=== PATIENT | female | born 1950 | race Caucasian/White ===

== ENCOUNTER 2017-06-21 19:03 | Emergency (ER) | payer OTHER ==
[~2017-06-21] VITALS: Ht 167.6 cm; Wt 84.5 kg
[~2017-06-21 19:03] MED LIST: BROM0.07 OPL; BUPRTAB51 PO; GLC500 PO; GLIM4TAB2 PO; HYDR12.55 PO; PRED1SUS3 OPL; SERT50TA PO
[2017-06-21 19:05] VITALS: TEMP 37.2; Ht 167.6 cm; Wt 84.5 kg
[2017-06-21] MEDS ORDERED: ONDANSETRON INJ 2 MG/ML 2 ML VIAL IV STA (19:15)
[2017-06-21] MEDS ORDERED: NITROGLYCERIN 0.4 MG SL PER TAB CHARGE SL STA ×2 (19:15→20:41)
[2017-06-21] MEDS ORDERED: ASPIRIN 81 MG CHEW PO STA (19:22)
--- NOTE | 2017-06-21 19:22 | EMERGENCY ROOM VISIT NOTE ---
History Report prepared by Pee: Everton Fields Under the Supervision of: Dr. Pato Storm M.D. First contact with patient: 19:13 Chief Complaint: HYPERTENSION Stated Complaint: HIGH BP,L ARM PAIN,NAUSEA History of Present Illness The patient is a 67 year old female who presents to the Emergency Room with complaints of left arm pain that began 1.5 hours ago and rates the pain as 8/ 10. She reports she has had a previous episode from a nerve impingement and reports she currently has additional symptoms. She reports nausea, sweating, and SOB. She denies fevers, coughs, congestion, and palpitations.The patient has a history of HTN, DM, and GERD. She denies a history of blood clots. Source of History: patient Onset: 1.5 hours ago Position: arm (left) Quality: other (pain rated as 8/10) Timing: constant Modifying Factors (Relieving): other (Aspirin) Associated Symptoms: + SOB, + nausea, No cough (denies congestion) Review of Systems See HPI for pertinent positives and negatives. A total of ten systems were reviewed and were otherwise negative. Past Medical & Surgical Medical Problems: (1) Hypertensive urgency (2) Left arm pain Social History Smoking Status: Never Smoker Current/Historical Medications Scheduled Bupropion (Wellbutrin-Xl), 300 MG PO QAM Glimepiride (Glimepiride), 0.5 TAB PO QAM Glimepiride (Glimepiride), 1 TAB PO DAILY Hydrochlorothiazide (Hydrochlorothiazide), 1 TAB PO QAM Losartan Potassium (Losartan Potassium), 50 MG PO DAILY Metformin HCl (Metformin HCl), 1 TAB PO QPM Sertraline (Zoloft), 50 MG PO QAM Sitagliptin (Januvia), 50 MG PO DAILY Allergies Coded Allergies: No Known Allergies (Unverified , 06/21/17) Physical Exam Vital Signs Date Time Temp Pulse Resp B/P (MAP) Pulse Ox O2 Delivery O2 Flow Rate FiO2 06/21/17 21:37 76 19 184/86 96 Room Air 06/21/17 21:02 77 18 175/108 95 06/21/17 20:12 72 18 166/96 95 Room Air 06/21/17 19:47 198/104 06/21/17 19:46 94 Room Air 06/21/17 19:24 77 12/6/17 19:05 37.2 93 16 187/103 97 Room Air Physical Exam GENERAL: Awake, alert, well-appearing, in no distress HENT: Normocephalic, atraumatic. Oropharynx unremarkable. EYES: Normal conjunctiva. Sclera non-icteric. NECK: Supple. No nuchal rigidity. FROM. No JVD. RESPIRATORY: Clear to auscultation. CARDIAC: Regular rate, normal rhythm. Extremities warm and well perfused. Pulses equal. ABDOMEN: Soft, non-distended. No tenderness to palpation. No rebound or guarding. No masses. Mild epigastric discomfort. No peritoneal signs. RECTAL: Deferred. MUSCULOSKELETAL: Chest examination reveals no tenderness. The back is symmetrical on inspection without obvious abnormality. There is no CVA tenderness to palpation. No joint edema. LOWER EXTREMITIES: Calves are equal size bilaterally and non-tender. No edema. No discoloration. NEURO: Normal sensorium. No sensory or motor deficits noted. SKIN: No rash or jaundice noted. Medical Decision & Procedures ER Provider Diagnostic Interpretation: Radiology results as stated below per my review and radiologist interpretation: Laboratory Results 06/21/17 19:40 Red Blood Count 4.48, Mean Corpuscular Volume 87.5, Mean Corpuscular Hemoglobin 29.2, Mean Corpuscular Hemoglobin Concent 33.4, Mean Platelet Volume 11.8, Neutrophils (%) (Auto) 51.6, Lymphocytes (%) (Auto) 33.9, Monocytes (%) (Auto) 8.7, Eosinophils (%) (Auto) 4.7, Basophils (%) (Auto) 0.7, Neutrophils # (Auto) 2.84, Lymphocytes # (Auto) 1.87, Monocytes # (Auto) 0.48, Eosinophils # (Auto) 0.26, Basophils # (Auto) 0.04 06/21/17 19:40 Test 06/21/17 19:40 06/21/17 22:19 White Blood Count 5.51 K/uL (4.8-10.8) Red Blood Count 4.48 M/uL (4.2-5.4) Hemoglobin 13.1 g/dL (12.0-16.0) Hematocrit 39.2 % (37-47) Mean Corpuscular Volume 87.5 fL (80-100) Mean Corpuscular Hemoglobin 29.2 pg (25-34) Mean Corpuscular Hemoglobin Concent 33.4 g/dl (32-36) Platelet Count 179 K/uL (130-400) Mean Platelet Volume 11.8 fL (7.4-10.4) Neutrophils (%) (Auto) 51.6 % Lymphocytes (%) (Auto) 33.9 % Monocytes (%) (Auto) 8.7 % Eosinophils (%) (Auto) 4.7 % Basophils (%) (Auto) 0.7 % Neutrophils # (Auto) 2.84 K/uL (1.4-6.5) Lymphocytes # (Auto) 1.87 K/uL (1.2-3.4) Monocytes # (Auto) 0.48 K/uL (0.11-0.59) Eosinophils # (Auto) 0.26 K/uL (0-0.5) Basophils # (Auto) 0.04 K/uL (0-0.2) RDW Standard Deviation 43.2 fL (36.4-46.3) RDW Coefficient of Variation 13.4 % (11.5-14.5) Immature Granulocyte % (Auto) 0.4 % Immature Granulocyte # (Auto) 0.02 K/uL (0.00-0.02) Anion Gap 6.0 mmol/L (3-11) Est Creatinine Clear Calc Drug Dose 55.9 ml/min Estimated GFR () 63.5 Estimated GFR (Non- 54.8 BUN/Creatinine Ratio 11.6 (10-20) Calcium Level 9.1 mg/dl (8.5-10.1) Magnesium Level 2.2 mg/dl (1.8-2.4) Total Bilirubin 0.5 mg/dl (0.2-1) Direct Bilirubin 0.1 mg/dl (0-0.2) Aspartate Amino Transf (AST/SGOT) 15 U/L (15-37) Alanine Aminotransferase (ALT/SGPT) 30 U/L (12-78) Alkaline Phosphatase 76 U/L (45-117) Troponin I < 0.015 ng/ml (0-0.045) Total Protein 7.4 gm/dl (6.4-8.2) Albumin 3.9 gm/dl (3.4-5.0) Lipase 143 U/L (73-393) Bedside Troponin I < 0.030 ng/ml (0-0.045) Laboratory results reviewed by me Medications Administered Medications (Trade) Dose Ordered Sig/Tea Route Start Time Stop Time Status Last Admin Dose Admin Nitroglycerin (Nitrostat Tab) 0.4 mg NOW STAT SL 06/21/17 19:15 06/21/17 19:22 DC 06/21/17 19:47 0.4 MG Ondansetron HCl (Zofran Inj) 4 mg NOW STAT IV 06/21/17 19:15 06/21/17 19:22 DC 06/21/17 19:47 4 MG Aspirin (Aspirin Chew) 162 mg NOW STAT PO 06/21/17 19:22 06/21/17 19:23 DC 06/21/17 19:47 162 MG Nitroglycerin (Nitrostat Tab) 0.4 mg NOW STAT SL 06/21/17 20:41 06/21/17 20:44 DC 06/21/17 20:58 0.4 MG Famotidine (Pepcid 20mg Iv Push) 20 mg NOW STAT IV 06/21/17 20:41 06/21/17 20:44 DC 06/21/17 20:58 20 MG Glimepiride (Amaryl Tab) 4 mg NOW ONCE PO 06/21/17 20:45 06/21/17 20:46 DC 06/21/17 20:58 4 MG ECG Indication: chest pain, nausea, other (Left arm pain) Rate (beats per minute): 83 Rhythm: sinus rhythm (with occasional PVC) Findings: no acute ischemic change Medical Decision I reviewed the patient's past medical history, medications, and the nursing notes as described above. The patient's presentation and history were concerning for ACS, pneumonia, bronchitis, gastritis, reflux, and peptic ulcer. She is a 67-year-old woman with a past medical history of hypertension, diabetes presented to emergency department with substernal chest pain with radiation to her left shoulder and nausea one hour prior to arrival per history of present illness. On arrival the patient is in no acute distress, afebrile with stable vital signs. She has mild epigastric discomfort but no discrete tenderness or peritoneal signs. Given the patient's age and medical history patient will be a heart score of 4 assuming a negative troponin, and thus will be moderate risk. Admission for provocative testing is reasonable. Case was discussed with the hospitalist who will admit the patient for further management. Subsequently upon interview with case management patient was inform her admission would be under observation status and so the patient declined to be admitted secondary to financial concerns. I explained given the patient's moderate risk, further evaluation is indicated however she still did not want to stay. Thus a second troponin was done as [id number] troponin and was negative. Patient understood that she would risk a worse condition, disability, and . She was encourageed to return if she changed her mind or became worse. d/c'd AMA. Impression Primary Impression: Substernal chest pain Scribe Attestation The scribe's documentation has been prepared under my direction and personally reviewed by me in its entirety. I confirm that the note above accurately reflects all work, treatment, procedures, and medical decision making performed by me. Departure Information Dispostion Against Medical Advice Referrals Bhavik Aaron M.D. (PCP) Patient Instructions My [facility]
--- NOTE | 2017-06-21 19:38 | DIAGNOSTIC IMAGING REPORT ---
SINGLE VIEW CHEST CLINICAL HISTORY: Atypical chest pain. FINDINGS: An AP, portable, upright chest radiograph is obtained. No prior studies are available for comparison at the time of dictation. The heart is top normal for projection. There is mild atherosclerotic calcification of the thoracic aorta. Minimal bibasilar atelectasis is noted. The lungs and pleural spaces are otherwise clear. No pneumothorax is seen. The skeletal structures are osteopenic. The bony thorax is grossly intact. IMPRESSION: No acute cardiopulmonary abnormality. Electronically signed by: Juan Roy M.D. 06/21/2017 7:37 PM Dictated Date/Time: 06/21/2017 7:36 PM
[2017-06-21 19:46] VITALS: O2SAT 94
[2017-06-21 19:54] LABS: BASO % 0.7 %; BASO ABS # 0.04 K/uL (0-0.2); COMPLETE YES; EOS % 4.7 %; HEMATOCRIT 39.2 % (37-47); IG% 0.4 %; LYMPH % 33.9 %; LYMPH ABS # 1.87 K/uL (1.2-3.4); MEAN CELL VOLUME 87.5 fL (80-100); MEAN CORPUSCULAR HEMOGLOBIN 29.2 pg (25-34); MEAN CORPUSCULAR HGB CONC 33.4 g/dl (32-36); MEAN PLATELET VOLUME 11.8 fL (7.4-10.4); MONO % 8.7 %; NEUT % 51.6 %; PLATELET COUNT 179 K/uL (130-400); RED BLOOD COUNT 4.48 M/uL (4.2-5.4); WHITE BLOOD COUNT 5.51 K/uL (4.8-10.8)
[2017-06-21] MEDS ORDERED: SITA50TA3 PO (20:10)
[2017-06-21] MEDS ORDERED: GLIM4TAB2 PO (20:10)
[2017-06-21 20:12] LABS: ALT/SGPT 30 U/L (12-78); AST/SGOT 15 U/L (15-37); BLOOD UREA NITROGEN 12 mg/dl (7-18); BUN/CREATININE RATIO 11.6 (10-20); CALCIUM 9.1 mg/dl (8.5-10.1); CARBON DIOXIDE 28 mmol/L (21-32); CHLORIDE 102 mmol/L (98-107); CREATININE 1.04 mg/dl (0.60-1.20); GLUCOSE 107 mg/dl (70-99); MAGNESIUM 2.2 mg/dl (1.8-2.4); POTASSIUM 3.2 mmol/L (3.5-5.1); SODIUM 136 mmol/L (136-145)
[2017-06-21 20:17] LABS: ALKALINE PHOSPHATASE 76 U/L (45-117)
[2017-06-21] MEDS ORDERED: FAMOTIDINE 20MG/5ML IV PUSH IV STA (20:41)
[2017-06-21] MEDS ORDERED: GLIMEPIRIDE 2 MG TAB PO ONE (20:45)
[2017-06-21] MEDS ORDERED: METFORMIN HCL 500 MG TAB PO SCH (20:45)
[2017-06-21 21:37] VITALS: BP 184/86; PULSE 76; O2SAT 96
[2017-06-21] MEDS ORDERED: GLUCOSE 40% GEL 15 GM TUBE PO PRN (21:45)
[2017-06-21] MEDS ORDERED: DEXTROSE 50% 50 ML SYR IV PRN (21:45)
[2017-06-21] MEDS ORDERED: GLUCOSE 10 TABS/TUBE PO PRN (21:45)
[2017-06-21] MEDS ORDERED: LABETALOL HCL IV 5 MG/ML 20ML IV PRN (21:45)
[2017-06-21] MEDS ORDERED: NITROGLYCERIN 0.4 MG SL PER TAB CHARGE SL PRN (21:45)
[2017-06-21] MEDS ORDERED: ACETAMINOPHEN 325 MG TAB PO PRN (21:45)
[2017-06-21] MEDS ORDERED: ENOXAPARIN 40 MG/0.4 ML SYR SC SCH (21:45)
[2017-06-21] MEDS ORDERED: GLUCAGON FOR INJ 1 MG VIAL SQ PRN (21:45)
[2017-06-21] MEDS ORDERED: ONDANSETRON INJ 2 MG/ML 2 ML VIAL IV PRN (21:45)
[2017-06-21] MEDS ORDERED: POTASSIUM CHLORIDE 10 MEQ TABCR PO ONE (21:45)
[2017-06-21] MEDS ORDERED: CZR25 PO (21:54)
--- NOTE | 2017-06-21 21:55 | History and Physical ---
History & Physical Date & Time of Service: Jun 21, 2017 at 21:55 Chief Complaint: High Bp,L Arm Pain,Nausea Primary Care Physician: Bhavik Aaron M.D. History of Present Illness Source: patient Patient is a 67 Yr female with PMH of HTN, DM II, Depression, ?Asthma presents with history of Social History Smoking Status: Never Smoker Allergies Coded Allergies: No Known Allergies (Unverified , 06/21/17) Home Medications Scheduled Bupropion (Wellbutrin-Xl), 300 MG PO QAM Glimepiride (Glimepiride), 0.5 TAB PO QAM Glimepiride (Glimepiride), 1 TAB PO DAILY Hydrochlorothiazide (Hydrochlorothiazide), 1 TAB PO QAM Losartan Potassium (Losartan Potassium), 50 MG PO DAILY Metformin HCl (Metformin HCl), 1 TAB PO QPM Sertraline (Zoloft), 50 MG PO QAM Sitagliptin (Januvia), 50 MG PO DAILY Physical Exam Vital Signs Date Time Temp Pulse Resp B/P (MAP) Pulse Ox O2 Delivery O2 Flow Rate FiO2 06/21/17 21:37 76 19 184/86 96 Room Air 06/21/17 21:02 77 18 175/108 95 06/21/17 20:12 72 18 166/96 95 Room Air 06/21/17 19:47 198/104 06/21/17 19:46 94 Room Air 06/21/17 19:24 77 06/21/17 19:05 37.2 93 16 187/103 97 Room Air Diagnostics Laboratory Results Results Past 24 Hours Test 06/21/17 19:40 Range/Units White Blood Count 5.51 4.8-10.8 K/uL Red Blood Count 4.48 4.2-5.4 M/uL Hemoglobin 13.1 12.0-16.0 g/dL Hematocrit 39.2 37-47 % Mean Corpuscular Volume 87.5 80-100 fL Mean Corpuscular Hemoglobin 29.2 25-34 pg Mean Corpuscular Hemoglobin Concent 33.4 32-36 g/dl Platelet Count 179 130-400 K/uL Mean Platelet Volume 11.8 7.4-10.4 fL Neutrophils (%) (Auto) 51.6 % Lymphocytes (%) (Auto) 33.9 % Monocytes (%) (Auto) 8.7 % Eosinophils (%) (Auto) 4.7 % Basophils (%) (Auto) 0.7 % Neutrophils # (Auto) 2.84 1.4-6.5 K/uL Lymphocytes # (Auto) 1.87 1.2-3.4 K/uL Monocytes # (Auto) 0.48 0.11-0.59 K/uL Eosinophils # (Auto) 0.26 0-0.5 K/uL Basophils # (Auto) 0.04 0-0.2 K/uL RDW Standard Deviation 43.2 36.4-46.3 fL RDW Coefficient of Variation 13.4 11.5-14.5 % Immature Granulocyte % (Auto) 0.4 % Immature Granulocyte # (Auto) 0.02 0.00-0.02 K/uL Sodium Level 136 136-145 mmol/L Potassium Level 3.2 3.5-5.1 mmol/L Chloride Level 102 98-107 mmol/L Carbon Dioxide Level 28 21-32 mmol/L Anion Gap 6.0 3-11 mmol/L Blood Urea Nitrogen 12 7-18 mg/dl Creatinine 1.04 0.60-1.20 mg/dl Est Creatinine Clear Calc Drug Dose 55.9 ml/min Estimated GFR () 63.5 Estimated GFR (Non- 54.8 BUN/Creatinine Ratio 11.6 10-20 Random Glucose 107 70-99 mg/dl Calcium Level 9.1 8.5-10.1 mg/dl Magnesium Level 2.2 1.8-2.4 mg/dl Total Bilirubin 0.5 0.2-1 mg/dl Direct Bilirubin 0.1 0-0.2 mg/dl Aspartate Amino Transf (AST/SGOT) 15 15-37 U/L Alanine Aminotransferase (ALT/SGPT) 30 12-78 U/L Alkaline Phosphatase 76 45-117 U/L Troponin I < 0.015 0-0.045 ng/ml Total Protein 7.4 6.4-8.2 gm/dl Albumin 3.9 3.4-5.0 gm/dl Lipase 143 73-393 U/L Impression VTE Prophylaxis VTE Risk Assessment Done? Y/N: Yes Risk Level: Low
[2017-06-21] MEDS ORDERED: ALBUTEROL 0.083% NEBU SOLN 3 ML VIAL INH PRN (22:00)
--- NOTE | 2017-06-22 03:24 | Progress Note ---
Progress Note Date of Service Jun 22, 2017. Progress Note Patient was initially thought to be admitted under observation for chest pain R/ O ACS. Patient left AMA from ED secondary to financial issues being under Observation status. Discussed with CM, patient doesn't meet admission criteria. Discussed with ED physician. Patient left AMA.
[2017-06-22] MEDS ORDERED: INSULIN ASPART 100 UNITS/ML 3 ML PEN SC SCH (07:00)
[2017-06-22] MEDS ORDERED: SERTRALINE HCL 50 MG TAB PO SCH (09:00)
[2017-06-22] MEDS ORDERED: LOSARTAN POTASSIUM 25 MG TAB PO SCH (09:00)
[2017-06-22] MEDS ORDERED: BuPROPion XL 300 MG TABCR PO SCH (09:00)
[2017-06-22] MEDS ORDERED: NON-FORMULARY MEDICATION (Hydrochlorothiazide 1 TAB) PO SCH (09:00)
== END 2017-06-21 22:40 | disposition left against medical advice (07) ==
LOC: C.EDB 19:05 → ENRESERV 22:10 → CANBEDREQ 22:18 → C.EDB 22:40
DX: R07.2 Precordial pain (principal); I10 Essential (primary) hypertension; Z79.84 Long term (current) use of oral hypoglycemic drugs; Z79.899 Other long term (current) drug therapy